=== PATIENT | male | born 1980 | race Caucasian/White ===

== ENCOUNTER 2017-12-08 04:36 | Emergency (ER) | payer OTHER ==
[~2017-12-08] VITALS: Ht 188 cm; Wt 95.3 kg
[2017-12-08] MEDS ORDERED: NAPR500T14 (04:57)
== END 2017-12-08 12:01 | disposition home or self-care (01) ==
LOC: ER 04:36
DX: N50.812 Left testicular pain (principal); N50.811 Right testicular pain; R10.2 Pelvic and perineal pain